=== PATIENT | female | born 1970 | race Caucasian/White ===

== ENCOUNTER → 2020-12-29 | Outpatient (CLI) | payer MEDICARE | LOC: NM 09:44 | DX: E11.621 Type 2 diabetes mellitus with foot ulcer (principal); L97.519 Non-pressure chronic ulcer of other part of right foot with unspecified severity | CPT/HCPCS: 78315; A9503 ==

== ENCOUNTER → 2021-11-16 | Outpatient (CLI) | payer MEDICARE | LOC: CT 11:00 | DX: R22.41 Localized swelling, mass and lump, right lower limb (principal); E11.40 Type 2 diabetes mellitus with diabetic neuropathy, unspecified | CPT/HCPCS: 36415; 73702; 82565; 84520; Q9967 ==